=== PATIENT | female | born 1960 | race African-American/Black ===

== ENCOUNTER 2018-08-07 09:20 | Emergency (ER) | payer BC, OTHER ==
[2018-08-07 09:43] VITALS: BP 120/87; PULSE 81; TEMP 98.2; BMI 32.9
--- NOTE | 2018-08-07 10:05 | PDOC ---
History of Present Illness - General Chief Complaint: Respiratory Stated Complaint: COUGH AND CHEST TIGHTNESS Time Seen by Provider: 08/07/18 09:30 - History of Present Illness Initial Comments: 08/07/18 13:14 Chief complaint: Lightheadedness History of present illness: Patient states that for the last week she has been feeling intermittently dizzy and lightheaded, mostly at work. She also has a chronic nonproductive cough without fever or shortness of breath Review of systems: Denies fever/chills, sore throat, chest pain, shortness of breath, abdominal pain, nausea, vomiting, diarrhea, visual or focal neurologic symptoms, unsteadiness of gait. Remainder systems reviewed and found to be negative Past medical history: Cardiomyopathy with normal coronary arteries on catheterization, elevated cholesterol. On statin and baby aspirin Social history: Admits increased stress at work and increased anxiety due to stress. No tobacco alcohol or nonprescription drugs Family history: Brother at an early age from possible heart disease. Otherwise no suspicious illnesses Physical exam: Alert and oriented well-developed well-nourished no acute distress cheerful and cooperative Afebrile, vital signs normal PERRLA 4 mm, fundi benign with sharp disc margins and good central venous pulsations, ENT clear Neck supple without bruit mass or nodes Lungs clear, full breath sounds throughout bilaterally CV S1 and S2 normal without murmur rub or gallop pulses full and symmetric no JVD or edema no bruits Abdomen benign Neurological C2 to 12 intact. Strength full and symmetric. No focal sensory or motor deficits. Gait stable and unimpaired. No lightheadedness or dizziness at present, no vertigo with head movement, no orthostatic symptoms. Impression: Symptoms ost likely due to stress and anxiety. Probable mild URI as well Plan: In view of cardiac history,ekg, enzymes obs 08/07/18 13:24 Past History - Past Medical History Allergies/Adverse Reactions: Allergies Allergy/AdvReac Type Severity Reaction Status Date / Time nut - unspecified Allergy Intermediate Hives Verified 08/07/18 09:29 Home Medications: Ambulatory Orders Aspirin 81 mg PO DAILY 08/07/18 Simvastatin [Zocor -] 5 mg PO HS 08/07/18 COPD: No Hypercholesterolemia: Yes - Surgical History Cardiac Surgery: Yes (CARDIAC CATH) Cholecystectomy: Yes - Suicide/Smoking/Psychosocial Hx Smoking History: Never smoked Have you smoked in the past 12 months: No Information on smoking cessation initiated: No Hx Alcohol Use: No Drug/Substance Use Hx: No Substance Use Type: None *Physical Exam - Vital Signs Last Vital Signs Temp Pulse Resp BP Pulse Ox 98.2 F 81 20 120/87 99 08/07/18 09:33 08/07/18 09:33 08/07/18 09:33 08/07/18 09:33 08/07/18 09:33 ED Treatment Course - LABORATORY CBC & Chemistry Diagram: 08/07/18 10:17 08/07/18 10:39 Medical Decision Making - Medical Decision Making 08/07/18 13:25 ekg shows minor non specific st t changes. An old ekg obtained from patients assignment desk assistant by fax demonstrated similar pattern. No interval chg enzymes neg. *DC/Admit/Observation/Transfer Diagnosis at time of Disposition: Viral upper respiratory illness - Discharge Dispostion Disposition: HOME Condition at time of disposition: Stable Decision to Admit order: No - Referrals - Patient Instructions Printed Discharge Instructions: DI for Viral Upper Respiratory Infection -- Adult, DI for Anxiety -- Adult - Post Discharge Activity Forms/Work/School Notes: Back to Work
[2018-08-07] MEDS ORDERED: guaiFENesin/D-METHORPHAN HB 10 ML UNIT-DOSE CUPS PO ONE (10:47)
[2018-08-07] MEDS ORDERED: guaiFENesin/D-METHORPHAN HB 10 ML UNIT-DOSE CUPS ONE (10:49)
[2018-08-07 10:54] LABS: BASO % 0.2 % (0-2.0); EOS % 3.5 % (0-4.5); HEMATOCRIT 41.2 % (32.4-45.2); HEMOGLOBIN 13.6 GM/dl (10.7-15.3); LYMPH % 31.5 % (8-40); MCH 31.4 pg (25.7-33.7); MEAN CELL VOLUME 95.2 fl (80-96); MEAN PLT VOLUME 7.8 fl (7.5-11.1); MONO % 5.5 % (3.8-10.2); NEUT % 59.3 % (42.8-82.8); PLATELET COUNT 233 K/MM3 (134-434); RBC 4.32 M/mm3 (3.60-5.2); RDW 12.4 % (11.6-15.6); WHITE BLOOD COUNT 5.3 K/mm3 (4.0-10.8)
[2018-08-07 11:05] LABS: ALBUMIN 4.2 g/dl (3.5-5.0); ALK PHOS 70 U/L (32-92); ANION GAP 3 MMOL/L (8-16); BILIRUBIN,TOTAL 0.8 mg/dl (0.2-1.0); BLOOD UREA NITROGEN 17 mg/dl (7-18); CHLORIDE 107 mmol/L (98-107); CO2 28 mmol/L (22-28); CREATININE 0.7 mg/dl (0.6-1.3); GLUCOSE,RANDOM 106 mg/dl (74-106); POTASSIUM 4.5 mmol/L (3.5-5.1); SGOT/AST 21 U/L (10-42); SGPT/ALT 23 U/L (10-40); SODIUM 138 mmol/L (136-145); TOT PROT 7.2 g/dl (6.4-8.3)
--- NOTE | 2018-08-08 15:09 | EKG ---
Test Reason : Blood Pressure : / mmHG Vent. Rate : 072 BPM Atrial Rate : 072 BPM P-R Int : 200 ms QRS Dur : 076 ms QT Int : 394 ms P-R-T Axes : 054 012 030 degrees QTc Int : 431 ms NORMAL SINUS RHYTHM NONSPECIFIC T WAVE ABNORMALITY ABNORMAL ECG NO PREVIOUS ECGS AVAILABLE Confirmed by EUGENE GARNETT, KUN ([id number]) on 08/08/2018 3:08:51 PM Referred By: LISSETH MIRANDA Confirmed By:KUN KNIGHT MD
== END 2018-08-07 12:39 | disposition home or self-care (01) ==
LOC: FER 09:20
DX: E78.00 Pure hypercholesterolemia, unspecified (principal); J06.9 Acute upper respiratory infection, unspecified
CPT/HCPCS: 36415; 80053; 82550; 84484; 85025; 93005; 99282-25